=== PATIENT | female | born 1995 | race Caucasian/White ===

== ENCOUNTER 2024-06-20 09:11 | Outpatient (CLI) | payer OTHER, SELFPAY | END 2024-06-20 09:12 | disposition home or self-care (01) | PROVIDERS: Visit Provider Registered Nurse | DX: Z34.91 Encounter for supervision of normal pregnancy, unspecified, first trimester (principal); Z3A.01 Less than 8 weeks gestation of pregnancy | CPT/HCPCS: 76817; 83021; 86703; 86706; 86803; 86850; 86900; 86901; 87086; 87340; 87491; 87591; 87624; 88142 ==

== ENCOUNTER 2024-06-20 10:47 | Outpatient (CLI) | payer OTHER, SELFPAY ==
[2024-06-20 15:38] LABS: Chlamydia DNA Amplified* NOT DETECTED (No Detected); GC DNA Amplified* NOT DETECTED (No Detected)
[2024-06-22 02:59] LABS: HPV Source Cervix; HPV, High Risk by TMA Not Detected
== END 2024-06-20 10:48 | disposition home or self-care (01) ==
PROVIDERS: Visit Provider Registered Nurse
DX: Z34.81 Encounter for supervision of other normal pregnancy, first trimester (principal)
CPT/HCPCS: 83020; 83021; 85660; 86592; 86703; 86704; 86706; 86762; 86787; 86803; 86850; 86900; 86901; 87086; 87340; 87491; 87591; 87624; 87625; 88141; 88142

== ENCOUNTER 2024-09-12 10:21 | Outpatient (CLI) | payer OTHER, SELFPAY | END 2024-09-12 10:22 | disposition home or self-care (01) | LOC: US 10:22 | PROVIDERS: Visit Provider Advanced Practice Midwife | DX: O99.322 Drug use complicating pregnancy, second trimester (principal); F15.90 Other stimulant use, unspecified, uncomplicated; F41.9 Anxiety disorder, unspecified; F32.A Depression, unspecified; F90.9 Attention-deficit hyperactivity disorder, unspecified type; Z3A.19 19 weeks gestation of pregnancy | CPT/HCPCS: 76811; 76817 ==

== ENCOUNTER 2024-10-10 13:33 | Outpatient (CLI) | payer OTHER, SELFPAY | END 2024-10-10 13:34 | disposition home or self-care (01) | LOC: US 13:34 | PROVIDERS: Visit Provider Advanced Practice Midwife | DX: Z34.92 Encounter for supervision of normal pregnancy, unspecified, second trimester (principal); Z3A.23 23 weeks gestation of pregnancy | CPT/HCPCS: 76816 ==

== ENCOUNTER 2024-11-19 09:15 | Outpatient (CLI) | payer OTHER, SELFPAY ==
--- NOTE | 2024-11-19 09:15 | CRLHL7_ITS ---
For Patients: As a result of the Century Cures Act, medical imaging exams and procedure reports are released immediately into your electronic medical record. You may view this report before your referring provider. If you have questions, please contact your health care provider. OBSTETRICAL ULTRASOUND, 11/19/2024 INDICATION: Growth for Adderall use. CLINICAL HISTORY: PAOLO by US: 02/06/2025 Gestational Age: 28 weeks 5 days COMPARISON: 10/10/2024, 09/12/2024, 06/20/2024. TECHNIQUE: Real-time rogers-scale transabdominal imaging of the fetus was performed. FINDINGS: Fetus: Single Cervix: Not visualized positioning: Vertex Amniotic Fluid: 4.7 cm SDP heart rate: 159 bpm BIOMETRY: BPD: 7.6 cm, 30 weeks 3 days, 88% HC: 27.7 cm, 30 weeks 2 days, 4% AC: 25.9 cm, 30 weeks 1 day, 82% FL: 5.2 cm, 27 weeks 6 days, 14% FL/AC Ratio: 20.14% HC/AC ratio: 1.07 EFW: 1386 grams; 3 lbs. 1 oz. age by this ultrasound: 29 weeks 6 days PAOLO by this ultrasound: 01/29/2025 Percentile by PAOLO: 63% IMPRESSION: 1. Sonographic gestational age 29 weeks 6 days and sonographic due date 01/29/2025. Sonographic age is 8 days of the clinical age. 2. Estimated weight is 63rd percentile. Abdominal circumference is 82nd percentile. PARAMJIT MAST M.D. Diagnostic Radiologist [email or web address] Transcribed: 12:[address]/Dictated by: Paramjit Mast MD @ 11/19/2024 10:49:00 AM (Electronically Signed)
== END 2024-11-19 09:16 | disposition home or self-care (01) ==
LOC: US 09:15
PROVIDERS: Visit Provider Advanced Practice Midwife
DX: O99.343 Other mental disorders complicating pregnancy, third trimester (principal); F90.9 Attention-deficit hyperactivity disorder, unspecified type; F15.90 Other stimulant use, unspecified, uncomplicated; Z3A.28 28 weeks gestation of pregnancy
CPT/HCPCS: 76816

== ENCOUNTER 2024-11-21 10:30 | Outpatient (CLI) | payer OTHER, SELFPAY | END 2024-11-21 10:31 | disposition home or self-care (01) | LOC: NFLDREF 11-23 08:44 | PROVIDERS: Visit Provider Midwife | DX: Z34.93 Encounter for supervision of normal pregnancy, unspecified, third trimester (principal); Z3A.28 28 weeks gestation of pregnancy | CPT/HCPCS: 85027; 86592 ==

== ENCOUNTER 2024-12-24 10:48 | Outpatient (CLI) | payer OTHER, SELFPAY ==
[2024-12-24] VITALS (16 sets, daily range): BP systolic 121–147; BP diastolic 78–100; PULSE 93–113; RESP 17–18; TEMP 36.7–37.1; O2SAT 97
[2024-12-24 11:22] LABS: Amnisure Rom* POSITIVE
[2024-12-24] MEDS: BETAMETHASONE SOD PHOS/ACETATE 6 MG/ML ML 12 MG IM (12:07)
--- NOTE | 2024-12-24 12:19 | PM.OBHPLI ---
OB - H&P: HPI Labor/Induction History of Present Illness Date Seen: 12/24/24 Chief Complaint: Judit is a 29 year old 3 para 1 at 33.5 weeks gestation by first trimester ultrasound, who presents with a gush of light yellow fluid at 0830. Chief complaint: Triage-Nurses : 3 Para: 1 Narrative: Judit Santiago is a 29 year old female presenting with PROM this morning, confirmed with positive AmniSure. States over the last week she has had an increase in mucus discharge, denies irritation, itching, bleeding or watery fluid. Is feeling movement, denies feeling any contractions until after gush of fluid this morning. Specific Issues/Plans G 3 P 0111 : Gómez It is a boy! H&P: [] # Nausea and vomiting in . Decently managed on Prilosec, Reglan and meclizine. # ADHD, anxiety, depression. Adderall, Venlafaxine, restarting bupropion. Managed by psychiatry. Currently seeing the Q6 months, encouraged to consider increasing therapy visits. MFM consultation due to stimulant medication-declines at this time. Level 2 ultrasound: completed 09/12/2024 [facility] recommends growth US at 28 weeks or 34 weeks: EFW 63% # History of ectopic. 2-2023. Treated with MTX. # Rubella nonimmune. Recommend vaccine. 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 1 in 4700. Carrier testing for partner is recommended prior to future per documentation. They will consider in the future. # Small bladder and suboptimal spine views, follow-up with M 1 month from previous visit. Normal on repeat US. Imaging: Level II Anatomy US (09/12/2024): Impression: 1. Cavazos at 19w0d gestational age. 2. No anomalies commonly detected by ultrasound were identified in the detailed anatomic survey within the limits of ultrasound, but the spine is suboptimally imaged and the bladder appears small throughout the examination. 3. Growth parameters and estimated weight were consistent with gestational age predicted by assigned PAOLO. 4. The amniotic fluid volume appeared normal. 5. On transvaginal imaging, performed due to a history of , the cervix appeared long and closed. Follow up US with [facility] (10/10/2024): Impression: 1. Cavazos intrauterine at 23w 0d gestational age. 2. None of the anomalies commonly detected by ultrasound were evident in the anatomic survey described above. 3. Growth parameters and estimated weight were consistent with appropriate for gestational age pattern of growth. 4. The amniotic fluid volume appeared normal. Growth US: 1.Sonographic gestational age 29 weeks 6 days and sonographic due date 01/29/2025. Sonographic age is 8 days of the clinical age. 2.Estimated weight is 63rd percentile. Abdominal circumference is 82nd percentile. Vaccinations: Flu: Declines Covid: Declined Tdap: 12/05/24 RSV: [] Hepatitis B nonimmune. Not high risk. Considering PP. 32 week mental health: [] Last pap: 07/03/24 NIL,-HPV. Comments: Pt has allergy to amoxicillin reports hives and throat swelling as reaction History of Present Dating criteria: based on 1st trimester US only care: good care Ultrasounds: normal 1st trimester US and normal mid trimester US Abnormal ultrasound findings: small bladder with anatomy scan, follow up was normal Labs Blood type: O (+) positive Review of Systems Status of ROS: Reports: 10 or more systems reviewed and unremarkable except as noted in History and below Const: Denies: fever or chills GI: Denies: abdominal pain, nausea or vomiting : Denies: painful urination, urinary frequency, urinary urgency or blood in urine Meds Home Medications and Allergies Home Medications ?Medication ?Instructions ?Recorded ?Confirmed ?Type bupropion HCl 150 mg 24 hr tablet, 300 mg PO DAILY 06/20/24 12/24/24 History extended release dextroamphetamine-amphetamine 10 1 tab PO BID 06/20/24 12/24/24 History mg tablet docosahexaenoic acid 200 mg mg PO DAILY 06/20/24 12/19/24 History capsule ( DHA) fexofenadine 180 mg tablet 180 mg PO Q24H 06/20/24 12/24/24 History venlafaxine 150 mg 150 mg PO DAILY 06/20/24 12/24/24 History capsule,extended release 24 hr meclizine 25 mg tablet 50 mg (2 x 25 mg) PO BID PRN 08/24/24 12/24/24 Rx motion sickness #120 tabs omeprazole magnesium 20 mg 20 mg PO QDAY #60 caps 08/24/24 12/24/24 Rx capsule,delayed release ondansetron HCl 8 mg tablet 8 mg PO Q8H PRN nausea and 11/20/24 12/24/24 Rx vomiting #30 tabs Allergies Allergy/AdvReac Type Severity Reaction Status Date / Time amoxicillin Allergy Intermediate Verified 12/24/24 11:23 OB - H&P: Exam Physical Exam: Vital signs: Temp Pulse Resp BP 98.1 F 102 H 17 142/78 H 12/24/24 10:57 12/24/24 12:03 12/24/24 10:57 12/24/24 12:03 Narrative: Vitals Reviewed Constitutional:? Alert and oriented x3 HEENT:? Normocephalic, atraumatic Neck:? Supple Lungs:? Clear to auscultation bilaterally Heart:? Regular rate and rhythm, no murmur, rub or gallop Abdomen:? Soft, nontender, and gravid. Vertex by Anuel's, confirmed with cervical exam. Extremities:? No edema or erythema Cervix: 2 cm/50%/-3 station/vertex NST: 150 bpm/moderate variability/+accelerations/rare variable decelerations/mildcontractions every 3-7 minutes OB - Problem Based A/P Additional Plan (1) premature rupture of membranes (PPROM) with unknown onset of labor: Status: Acute Plan premature rupture of membranes at 33.5 weeks Plan transfer to [facility], for higher level of care accepting Dr ALMEIDA Regina Cho [employer] Member specialist Betamethasone given and antibiotics started Delivery/Labor/Induction Plan Plan: other
[2024-12-24] MEDS: CLINDAMYCIN 900 MG/50 ML-D5W IVPB (12:24)
[2024-12-24] MEDS: AZITHROMYCIN 250 MG TABLET 1000 MG PO (12:26)
[2024-12-24] MEDS: LACTATED RINGERS 1000 ML 1,000 ML 125 ML IV (12:27)
[2024-12-24 13:43] LABS: Appearance Urine Clear (Clear)
[2024-12-24] MEDS: SODIUM CHLORIDE 0.9% IVPB (13:57)
[2024-12-24] MEDS: GENTAMICIN IVPB (13:57)
--- NOTE | 2024-12-24 17:58 | PC.OBNST ---
NST Note NST Note Start: 12/24/24 10:54 Freq: ONCE Status: Discharge Protocol: Document 12/24/24 14:00 [facility] (Rec: 12/24/24 17:58 [facility] Desktop) NST Note 3 Para (# of births) 1 EDC [birth year] Gestational Age In 33 Weeks & 5 Days Weeks & Days Patient Presented Leaking fluid with Complaint(s) of Reactive Yes Appropriate for Yes Gestational Age RN Lora Naik RN Date 12/24/24 Reactive Yes Appropriate for Yes Gestational Age OMEGA Knowles RN Date 12/24/24 OB NST charge Yes Complete NST Note Yes via Write Note The provider's electronic signature indicates the NST is reactive/appropriate for gestational age. *Note to provider: If an addendum is required, open the patient's chart and click on the note under the Nurse/Allied Health tab.
[2024-12-25 12:13] LABS: Strep B DNA Probe Negative (Negative)
[2024-12-25 12:47] LABS: Strep B Susceptibility Needed? No
== END 2024-12-24 14:18 | disposition short-term general hospital (02) ==
LOC: OB OUT 10:48 → OB 10:48
PROVIDERS: Absent Provider Obstetrics & Gynecology; Visit Provider Advanced Practice Midwife
DX: O42.913 Preterm premature rupture of membranes, unspecified as to length of time between rupture and onset of labor, third trimester (principal); Z3A.33 33 weeks gestation of pregnancy
CPT/HCPCS: 59025; 81001; 81003; 84112; 87081; 87086; 87653; G0463; A9270; J0702; J0736; J1580; J7120

== ENCOUNTER 2024-12-24 14:22 | Outpatient (CLI) | payer OTHER, SELFPAY | END 2024-12-24 14:23 | disposition home or self-care (01) | LOC: AMB 01-14 16:29 | PROVIDERS: Visit Provider Emergency Medicine | DX: O42.913 Preterm premature rupture of membranes, unspecified as to length of time between rupture and onset of labor, third trimester (principal); Z3A.33 33 weeks gestation of pregnancy | CPT/HCPCS: A0425; A0427 ==